=== PATIENT | female | born 1960 | race Caucasian/White ===

== ENCOUNTER 2018-07-03 08:21 | Day surgery (SDC) | payer BC ==
[~2018-07-03 08:21] MED LIST: ACEDIPPM; ALPR1; CLON1; CODASP30; DIAZ5 PO; GABA100; HORMONES; HYDACE10B PO; HYDMOR2 PO; LIDO5TP; LORA1 PO; METH10 PO; OXYACE5T; OXYACE5T PO; OXYC1TAB11 PO; PRED10 PO; PREG75; ROSU10TA PO; TIZA4; TRAM50; TRAZ50 PO; WARF3 PO; WARF5 PO
--- NOTE | 2018-07-03 10:24 | NUR ---
INTO STEP VIA RAHCEL. PT A&O X3. DENIES PAIN. BANDAIDE INTACT TO LOWER BACK. VS WDL.
--- NOTE | 2018-07-03 11:31 | NUR ---
Discharge instructions reviewed with patient. Patient verbalizes understanding. Copy given to patient to take home.BANDAIDE TO LOWER BACK REMAINS C/D/I.
== END 2018-07-03 11:48 | disposition home or self-care (01) ==
LOC: RAD 08:21 → CT 10:00 → RAD 11:48
PROVIDERS: Radiology Diagnostic Radiology
PROC: BR27YZZ Computerized Tomography (CT Scan) of Thoracic Spine using Other Contrast (ICD-10-PCS; principal; 2018-07-03 11:00)
DX: M51.24 Other intervertebral disc displacement, thoracic region (principal); M47.898 Other spondylosis, sacral and sacrococcygeal region; M54.6 Pain in thoracic spine
CPT/HCPCS: 62304; 72132; Q9966

== ENCOUNTER → 2019-06-19 | Outpatient (CLI) | payer BC | END | disposition home or self-care (01) | LOC: LAB EV 12:00 → LAB SHORT 12:00 | DX: K09.1 Developmental (nonodontogenic) cysts of oral region (principal) | CPT/HCPCS: 87070; 87075; 87076; 87185; 87205 ==

== ENCOUNTER 2022-07-18 11:37 | Emergency (ER) | payer BC ==
[~2022-07-18] VITALS: Ht 172.7 cm; Wt 88.5 kg
[~2022-07-18 11:37] MED LIST changes: +HYDMOR4 PO
[2022-07-18 13:21] LABS: International Normalized Ratio 2.5; Prothrombin Time Results 24.7 Sec (9.7-11.5)
[2022-07-18] MEDS ORDERED: HYDMOR4 PO (15:18)
[2022-07-18] MEDS ORDERED: Miralax17 GM PO (15:20)
== END 2022-07-18 16:20 | disposition home or self-care (01) ==
LOC: ER 11:37
PROVIDERS: Emergency Medicine
DX: S52.571A Other intraarticular fracture of lower end of right radius, initial encounter for closed fracture (principal); S52.611A Displaced fracture of right ulna styloid process, initial encounter for closed fracture; W19.XXXA Unspecified fall, initial encounter; I69.951 Hemiplegia and hemiparesis following unspecified cerebrovascular disease affecting right dominant side; D68.8 Other specified coagulation defects; T45.515A Adverse effect of anticoagulants, initial encounter; Z79.899 Other long term (current) drug therapy; Z79.01 Long term (current) use of anticoagulants
CPT/HCPCS: 73110; 76000; 85610; 94760; 94762; J1170; J2704; J7030

== ENCOUNTER 2022-07-23 11:22 | Day surgery (SDC) | payer BC ==
[~2022-07-23] VITALS: Ht 172.7 cm; Wt 89.6 kg
[~2022-07-23 11:22] MED LIST changes: +Miralax17 GM PO
[2022-07-23] MEDS ORDERED: ANASTROZOLE1 M7 PO (11:48)
--- NOTE | 2022-07-23 13:29 | NUR ---
EARINGS IDENTIFIED "FAKE" DIAMONDS REMOVED FOR SURGERY. PLACED PATIENT NAME ON BAG CONTAINING EARINGS AND BROUGHT TO PACU FOR SAFE KEEPING DURING SURGERY. PARTIAL DENTURES REMOVED PER DR PARKINSON REQUEST. KIKE PARTIAL DENTURES TO PACU FOR SAFE KEEPING ALSO.
--- NOTE | 2022-07-23 17:04 | NUR ---
Patient up to Ambulate independently. Gait steady. Discharge instructions reviewed with patient. Patient verbalizes understanding. Copy given to patient to take home. Discharged via wheelchair to private car for ride home.
== END 2022-07-24 22:42 | disposition home or self-care (01) ==
LOC: ORSCMMR 11:22
PROVIDERS: Orthopaedic Surgery
PROC: 0PSH04Z Reposition Right Radius with Internal Fixation Device, Open Approach (ICD-10-PCS; principal; 2022-07-23 13:30)
DX: S52.501A Unspecified fracture of the lower end of right radius, initial encounter for closed fracture (principal); F17.210 Nicotine dependence, cigarettes, uncomplicated; G47.33 Obstructive sleep apnea (adult) (pediatric); E03.9 Hypothyroidism, unspecified; W17.89XA Other fall from one level to another, initial encounter; E78.5 Hyperlipidemia, unspecified; Z86.73 Personal history of transient ischemic attack (TIA), and cerebral infarction without residual deficits; Z79.899 Other long term (current) drug therapy; Z79.01 Long term (current) use of anticoagulants
CPT/HCPCS: A9270; C1713; J0690; J1100; J1170; J1885; J2250; J2370; J2405; J2704; J3010; J7120

== ENCOUNTER 2023-04-21 22:05 | Observation (INO) | payer BC, MEDICARE ==
[~2023-04-21] VITALS: Ht 172.7 cm; Wt 81.7 kg
[~2023-04-21 22:05] MED LIST changes: +ANASTROZOLE1 M7 PO
[2023-04-21 23:24] LABS: BASOPHILS ABSOLUTE AUTO 0.02 K/mm3 (0.00-0.23); BASOPHILS PERCENT AUTO 0 % (0-2); EOSINOPHILS ABSOLUTE AUTO 0.04 K/mm3 (0.00-0.68); EOSINOPHILS PERCENT AUTO 1 % (0-6); Hematocrit 42.8 % (33.0-51.0); Hemoglobin 14.5 g/dL (11.5-16.0); IMMATURE GRAN ABSOLUTE AUTO 0.01 K/mm3 (0.00-0.10); IMMATURE GRAN PERCENT AUTO 0 % (0-1); LYMPHOCYTES ABSOLUTE AUTO 1.25 K/mm3 (0.84-5.20); LYMPHOCYTES PERCENT AUTO 22 % (21-46); MONOCYTES ABSOLUTE AUTO 0.43 K/mm3 (0.16-1.47); MONOCYTES PERCENT AUTO 8 % (4-13); Mean Corpuscular HGB 33.5 pg (26.0-34.0); Mean Corpuscular HGB Conc 33.9 g/dL (31.5-36.5); Mean Corpuscular Volume 99 fL (80-100); Mean Platelet Volume 10.4 fL (9.1-12.4); NEUTROPHILS ABSOLUTE AUTO 3.88 K/mm3 (1.96-9.15); NEUTROPHILS PERCENT AUTO 69 % (41-73); Platelet Count 254 K/mm3 (150-400); RDW Coefficient Variation 13.7 % (11.7-14.2); RDW Standard Deviation 50.6 fL (35.1-46.3); Red Blood Cell Count 4.33 M/mm3 (3.80-5.20); White Blood Cell Count 5.63 K/mm3 (4.00-11.30)
[2023-04-21 23:44] LABS: International Normalized Ratio 2.29; Prothrombin Time Results 22.9 Sec (9.7-11.5)
[2023-04-22 00:11] LABS: Alanine Aminotransfer (ALT/SGP 31 U/L (12-78); Albumin, Blood 3.3 g/dL (3.4-5.0); Alk Phos 72 U/L (50-136); Anion Gap 5 mmol/L (6-16); Aspartate Aminotrans (AST/SGOT 24 U/L (12-37); Bilirubin, Total 0.3 mg/dL (0.1-1.0); Blood Urea Nitrogen 14 mg/dL (8-24); Bun/Creatinine Ratio 16.5 (12.0-20.0); CO2, Blood 26 mmol/L (21-32); Calcium, Blood 9.1 mg/dL (8.5-10.1); Chloride, Blood 114 mmol/L (98-108); Creatinine, Blood 0.85 mg/dL (0.40-1.00); Ethanol (Alcohol), Blood, Med <3 mg/dL; Globulin, Blood 3.2 g/dL (2.2-4.0); Glomerular Filtration Rate 76 (60-); Glucose, Blood 135 mg/dL (70-99); Magnesium, Blood 2.3 mg/dL (1.6-2.4); Phosphorus, Blood 2.3 mg/dL (2.5-4.9); Potassium, Blood 3.8 mmol/L (3.5-5.5); Sodium, Blood 145 mmol/L (136-145); Total Protein, Blood 6.5 g/dL (6.4-8.2)
[2023-04-22 00:18] LABS: Source, Urine Clean Catch
[2023-04-22 00:37] LABS: U Amphetamine Screen Not Detected; U Barbituate Screen Not Detected; U Benzodiazapine Screen Not Detected; U Buprenorphine Screen Not Detected; U Cannabinoids Screen Not Detected; U Cocaine Screen Not Detected; U Methadone Screen Not Detected; U Methamphetamine Screen Not Detected; U Opiates Screen DETECTED; U Oxycodone Screen Not Detected; U Phencyclidine Screen Not Detected; U Propoxyphene Screen Not Detected
[2023-04-22 00:39] LABS: Bilirubin, Urine Neg (Neg); Blood, Urine 1+ (Neg); Glucose Qualitative, Urine Neg (Neg); Ketones, Urine Neg (Neg); Leukocyte Esterase, Urine 1+ (Neg); Nitrite, Urine Neg (Neg); Protein, Urine Neg (Neg); Specific Gravity, Urine 1.015 (1.003-1.022); Urobilinogen, Urine NORM (Normal)
[2023-04-22 00:42] LABS: Appearance, Urine Clear (Clear); Color, Urine Yellow (P-Yellow); Red Blood Cells, Urine 0-2 /hpf (0-2); Squamous Epithelial Cells Few /hpf (Few); White Blood Cells, Urine 0-2 /hpf (0-5)
[2023-04-22 00:43] LABS: Bacteria Few /hpf
[2023-04-22 05:09] VITALS: BP 172/89
[2023-04-22 05:12] LABS: BASOPHILS ABSOLUTE AUTO 0.02 K/mm3 (0.00-0.23); BASOPHILS PERCENT AUTO 0 % (0-2); EOSINOPHILS ABSOLUTE AUTO 0.03 K/mm3 (0.00-0.68); EOSINOPHILS PERCENT AUTO 1 % (0-6); Hematocrit 43.6 % (33.0-51.0); Hemoglobin 14.7 g/dL (11.5-16.0); IMMATURE GRAN PERCENT AUTO 0 % (0-1); LYMPHOCYTES ABSOLUTE AUTO 1.38 K/mm3 (0.84-5.20); LYMPHOCYTES PERCENT AUTO 27 % (21-46); MONOCYTES ABSOLUTE AUTO 0.39 K/mm3 (0.16-1.47); MONOCYTES PERCENT AUTO 8 % (4-13); Mean Corpuscular HGB 33.6 pg (26.0-34.0); Mean Corpuscular HGB Conc 33.7 g/dL (31.5-36.5); Mean Corpuscular Volume 100 fL (80-100); Mean Platelet Volume 9.6 fL (9.1-12.4); NEUTROPHILS ABSOLUTE AUTO 3.38 K/mm3 (1.96-9.15); NEUTROPHILS PERCENT AUTO 65 % (41-73); Platelet Count 254 K/mm3 (150-400); RDW Coefficient Variation 13.7 % (11.7-14.2); Red Blood Cell Count 4.37 M/mm3 (3.80-5.20)
[2023-04-22 05:50] LABS: Bun/Creatinine Ratio 12.4 (12.0-20.0); Creatinine, Blood 1.13 mg/dL (0.40-1.00); Potassium, Blood 3.9 mmol/L (3.5-5.5)
[2023-04-22 06:00] LABS: Calcium, Blood 9.1 mg/dL (8.5-10.1)
[2023-04-22 08:05] VITALS: BP 151/121
[2023-04-22 10:40] VITALS: BP 123/103
[2023-04-22] MEDS ORDERED: HYDMOR4 PO (13:33)
[2023-04-22] MEDS ORDERED: TRAZ150T57 PO (13:34)
[2023-04-22] MEDS ORDERED: LIDO700A20 TOP (13:36)
[2023-04-22] MEDS ORDERED: Acetaminophen650 M1 PO (13:37)
[2023-04-22] MEDS ORDERED: MELATONIN10 M1 PO (13:37)
[2023-04-22 14:18] VITALS: BP 169/96
[2023-04-22 19:43] VITALS: BP 165/98
--- NOTE | 2023-04-22 19:57 | NUR ---
PATIENT WITH INCREASING INDEPENDENCE TODAY, SHE IS SBA TO BATHROOM WITHOUT WALKER, UP WALKING ANDRADE WITH THIS EVENING APPROX 100 FEET. HER EXPRESSIVE APHASIA AND BILAT FACIAL DROOP ARE DECREASING COMPARED TO THIS MORNING. PATIENT MEDICATED FOR PAIN PER EMAR WITH RELIEF. BED IN LOW POSITION, CALL LIGHT IN REACH. PATIENT DOES NOT CALL BUT WAITS TO GET UP WITH STAFF.
[2023-04-23 02:23] VITALS: BP 136/93
--- NOTE | 2023-04-23 03:55 | NUR ---
PT A&O, HAS EXPRESSIVE APHASIA AND STRUGGLES TO FIND THE WORDS TO SPEAK. WILL ANSWER QUESTIONS APPROPRIATELY. PT INCREASING IN INDEPENDENCE. IP ASSIST WHEN AMBULATING TO THE RESTROOM. MEDICATED PER EMAR FOR PT COMPLAINT OF PAIN. OFFERED K PAD FOR HEAT THERAPY. BED IN LOWEST POSITION WITH CALL LIGHT WITHIN REACH. WILL CONTINUE TO MONITOR.
[2023-04-23 07:40] LABS: International Normalized Ratio 1.56
[2023-04-23 08:07] VITALS: BP 155/94
[2023-04-23 10:24] LABS: BASOPHILS ABSOLUTE AUTO 0.02 K/mm3 (0.00-0.23); BASOPHILS PERCENT AUTO 0 % (0-2); EOSINOPHILS ABSOLUTE AUTO 0.02 K/mm3 (0.00-0.68); EOSINOPHILS PERCENT AUTO 0 % (0-6); Hematocrit 42.9 % (33.0-51.0); Hemoglobin 14.6 g/dL (11.5-16.0); IMMATURE GRAN ABSOLUTE AUTO 0.02 K/mm3 (0.00-0.10); IMMATURE GRAN PERCENT AUTO 0 % (0-1); LYMPHOCYTES ABSOLUTE AUTO 1.24 K/mm3 (0.84-5.20); LYMPHOCYTES PERCENT AUTO 23 % (21-46); MONOCYTES ABSOLUTE AUTO 0.37 K/mm3 (0.16-1.47); MONOCYTES PERCENT AUTO 7 % (4-13); Mean Corpuscular HGB 33.6 pg (26.0-34.0); Mean Corpuscular Volume 99 fL (80-100); NEUTROPHILS ABSOLUTE AUTO 3.78 K/mm3 (1.96-9.15); NEUTROPHILS PERCENT AUTO 69 % (41-73); RDW Coefficient Variation 13.6 % (11.7-14.2); RDW Standard Deviation 49.8 fL (35.1-46.3); Red Blood Cell Count 4.34 M/mm3 (3.80-5.20); White Blood Cell Count 5.45 K/mm3 (4.00-11.30)
[2023-04-23 10:39] LABS: Albumin, Blood 3.3 g/dL (3.4-5.0); Albumin/Globulin Ratio 0.9 (0.8-1.8); Bilirubin, Total 0.7 mg/dL (0.1-1.0); Bun/Creatinine Ratio 19.1 (12.0-20.0); Calcium, Blood 8.9 mg/dL (8.5-10.1); Creatinine, Blood 0.84 mg/dL (0.40-1.00); Globulin, Blood 3.5 g/dL (2.2-4.0); Total Protein, Blood 6.8 g/dL (6.4-8.2)
[2023-04-23 10:40] LABS: Potassium, Blood 4.4 mmol/L (3.5-5.5)
[2023-04-23 16:10] VITALS: BP 148/84
--- NOTE | 2023-04-23 18:22 | NUR ---
SHIFT SUMMARY PT AOX4, INDEPENDENT IN THE ROOM. MRI CANCELLED TODAY DUE TO IMPLANTED SPINAL STIMULATOR. REPEAT CT TOMORROW AM AND POSSIBLE DC HOME. MEDICATED FOR PAIN AND ANXIETY PER THE EMAR. PT'S EXPRESSIVE APHASIA IMPROVING. AT THE BS THIS SHIFT. CALL LIGHT WITHIN REACH, BED IN THE LOWEST POSITION. WILL REPORT TO ONCOMING NURSE.
[2023-04-23 19:16] VITALS: BP 157/79
--- NOTE | 2023-04-24 03:24 | NUR ---
SHIFT SUMMARY PT A&O X4, CALM AND COOPERATIVE WITH CARE. PT STRUGGLES WITH EXPRESSIVE APHASIA BUT IS IMPROVING. PT REQUIRES EXTRA TIME FOR RESPONSES SHE HAS TROUBLE FINDING THE CORRECT WORDS. PT CONTINENT AND AMBULATING WELL TO THE RESTROOM. PT TO HAVE REPEAT CT SCAN TODAY AND WILL LIKELY DISCHARGE TO HOME. MEDICATED FOR PAIN PER EMAR. BED KEPT IN LOWEST POSITION WITH CALL LIGHT WITHIN REACH. WILL CONTINUE TO MONITOR UNTIL END OF SHIFT.
[2023-04-24 05:23] VITALS: BP 169/100
[2023-04-24 06:10] VITALS: BP 156/91
[2023-04-24 06:45] LABS: International Normalized Ratio 1.58; Prothrombin Time Results 16.2 Sec (9.7-11.5)
[2023-04-24 07:51] VITALS: BP 137/82
[2023-04-24] MEDS ORDERED: AMLO5 PO (11:35)
[2023-04-24] MEDS ORDERED: ASPI81CH PO (11:35)
--- NOTE | 2023-04-24 12:12 | NUR ---
DISCHARGE NOTE PT DISCHARGE TO HOME WITH HOME HEALTH. PICKED UP BY HER , TAKEN TO VEHICLE BY THIS NURSE. NO IV AT TIME OF DISCHARGE. DISCHARGE INFORMATION AND EDUCATION PROVIDED. PERSONAL BELONGINGS RETURNED.
== END 2023-04-24 12:01 | disposition home health service (06) ==
LOC: ER 22:05 → MEDS 22:06
PROVIDERS: Emergency Medicine; Internal Medicine; Student in an Organized Health Care Education/Training Program; ADMIT Internal Medicine
DX: R47.01 Aphasia (principal); I69.954 Hemiplegia and hemiparesis following unspecified cerebrovascular disease affecting left non-dominant side; C50.911 Malignant neoplasm of unspecified site of right female breast; Z17.1 Estrogen receptor negative status [ER-]; E83.110 Hereditary hemochromatosis; E78.5 Hyperlipidemia, unspecified; I12.9 Hypertensive chronic kidney disease with stage 1 through stage 4 chronic kidney disease, or unspecified chronic kidney disease; N18.2 Chronic kidney disease, stage 2 (mild); G89.29 Other chronic pain; Z66 Do not resuscitate; Z79.01 Long term (current) use of anticoagulants; Z79.899 Other long term (current) drug therapy
CPT/HCPCS: 36415; 70450; 70496; 70498; 71275; 74174; 80048; 80053; 81001; 83605; 83735; 84100; 84145; 84443; 85025; 85610; 85730; 92610; 93005; 93010; 96374; 96375; 97162; 97530; 99285-25; A9270; G0378; J2060; J3010; Q9967

== ENCOUNTER 2024-07-09 06:33 | Day surgery (SDC) | payer MEDICARE, OTHER ==
[~2024-07-09] VITALS: Ht 167.6 cm; Wt 72.0 kg
[2024-07-09] VITALS (14 sets, daily range): BP systolic 109–144; BP diastolic 52–99
[~2024-07-09 06:33] MED LIST changes: +AMLO5 PO; +ASPI81CH PO; +Acetaminophen650 M1 PO; +IBUP400 PO; +LIDO700A20 TOP; +MELATONIN10 M1 PO; +METO50ER PO; +Prinivil10 MG PO; +SENN187 PO; +TRAZ150T57 PO
[2024-07-09] MEDS ORDERED: Chlorhexidine Mouth Care 15 ML UDC MT SCH (08:00)
[2024-07-09] MEDS ORDERED: Acetaminophen 500 MG Tab PO SCH ×2 (08:00→16:00)
[2024-07-09] MEDS ORDERED: Lactated Ringer's 1,000 ML IV SCH ×2 (08:00→08:45)
[2024-07-09] MEDS ORDERED: Tranexamic Acid 1,000 MG in NS 100 ML IV SCH (08:00)
[2024-07-09] MEDS ORDERED: CeFAZolin Sodium 2,000 MG in NS 100 ML IV SCH ×2 (08:00→19:00)
[2024-07-09] MEDS ORDERED: OxyCODONE HCL 10 MG TABCR PO SCH (08:00)
[2024-07-09] MEDS ORDERED: Ropivacaine 0.5% HCl/Pf 123.125 MG,EPINEPHrine HCL 0.25 MG,Ketorolac Tromethamine 15 MG... INFIL SCH (08:00)
[2024-07-09] MEDS ORDERED: CeFAZolin Sodium 2,000 MG VIAL ONE (08:22)
[2024-07-09] MEDS ORDERED: Magnesium Hydroxide Conc 10 ML UDC PO PRN (08:40)
[2024-07-09] MEDS ORDERED: Metoclopramide HCl 5MG / ML 2ML Vial IV PRN (08:40)
[2024-07-09] MEDS ORDERED: FLU VACC TS2024-25(6MOS UP)/PF 45 MCG/0.5 ML SYRINGE IM SCH (08:40)
[2024-07-09] MEDS ORDERED: HYDROmorphone HCl/Pf 1MG SYR IV PRN (08:40)
[2024-07-09] MEDS ORDERED: Ondansetron HCl 2 MG / ML 2ML Vial IV PRN (08:40)
[2024-07-09] MEDS ORDERED: Prochlorperazine Edisylate 10 mg Vial IV PRN (08:45)
[2024-07-09] MEDS ORDERED: Promethazine HCl 25 MG Tab PO PRN (08:45)
[2024-07-09] MEDS ORDERED: OxyCODONE HCL 5 MG TAB PO PRN ×2 (08:45)
[2024-07-09] MEDS ORDERED: DiphenhydrAMINE HCL 25 MG Cap PO PRN (08:50)
[2024-07-09] MEDS ORDERED: Bisacodyl 10 MG Supp PR PRN (08:50)
[2024-07-09] MEDS ORDERED: Docusate Sodium 100 MG Cap PO SCH (09:00)
[2024-07-09] MEDS ORDERED: Bupivacaine 0.5% HCl 5 MG/ML 30MLVIAL ONE (09:42)
[2024-07-09] MEDS ORDERED: Midazolam HCl 1MG / ML 2ML Vial ONE (09:42)
[2024-07-09] MEDS ORDERED: Dexamethasone Sod Phos 10 MG/ML 1ML VIAL ONE (09:43)
[2024-07-09] MEDS ORDERED: Ketorolac Tromethamine 30mg Vial ONE (09:43)
[2024-07-09] MEDS ORDERED: Ondansetron HCl 2 MG / ML 2ML Vial ONE (09:43)
[2024-07-09 09:56] LABS: Bilirubin, Direct 0.1 mg/dL (0.0-0.3); Bilirubin, Indirect 0.3 mg/dL (0.1-0.7); Bilirubin, Total 0.4 mg/dL (0.1-1.0)
[2024-07-09] MEDS ORDERED: propofoL 20 ML IV ONE (10:23)
[2024-07-09] MEDS ORDERED: FentaNYL Citrate 50 MCG/ML 2 ML Injection ONE ×3 (10:55→12:17)
[2024-07-09] MEDS ORDERED: ePHEDrine Sulfate 50 MG/ML 1ML Injection ONE (11:54)
[2024-07-09] MEDS ORDERED: Ketorolac Tromethamine 15mg Vial IV SCH (12:00)
[2024-07-09] MEDS ORDERED: HYDROmorphone HCl/Pf 1MG SYR ONE (12:30)
--- NOTE | 2024-07-09 13:35 | NUR ---
POST OP NOTE PT TO ROOM 221 FROM PACU. ALERT AND FOLLOWING COMMANDS. PT HAS HX OF CVA, BASELINE APHASIA. DRESSING TO R HIP C/D/I. RAMO, KALA BOLAND, POLAR PACK IN PLACE. PT MEDICATED FOR PAIN PER EMAR. VSS. INSTRUCTED ON USE OF CALL LIGHT, CALL LIGHT IN REACH.
[2024-07-09] MEDS ORDERED: Melatonin 5 MG Tablet PO PRN (16:45)
[2024-07-09] MEDS ORDERED: TraZODone HCl 100 MG Tab PO PRN (16:50)
--- NOTE | 2024-07-09 17:10 | NUR ---
SHIFT SUMMARY PT IS POD0 FOR T LA[place]IS[place]. PT IS ALERT AND RESPONSIVE, IMPULSIVE AT TIMES AND FORGETFUL ABOUT NEEDING ASSISTANCE, CHAIR ALARM IN PLACE. PT IS CALLING APPROPRIATELY MOST OF THE TIME. DRESSING TO R HIP C/D/I, CAP REFILL IN R TOES 2 SECS, PAS, KALA HOSE, POLAR PACK IN PLACE. PT IS A 1 ASST TO BATHROOM W/ FWW AND GB, TOLERATING REG DIET AND FLUIDS, VOIDING APPROPRIATELY. PAIN TOLERABLE. VSS. PT CURRENTLY RESTING IN RECLINER. CALL LIGHT IN REACH.
[2024-07-09 17:29] LABS: Prothrombin Time Results 10.7 Sec (9.7-11.5)
[2024-07-09] MEDS ORDERED: Warfarin Sodium 5 MG Tab PO SCH (18:00)
[2024-07-09] MEDS ORDERED: AmLODIPine Besylate 5 MG Tab PO SCH (21:00)
[2024-07-10 00:48] VITALS: BP 159/91
[2024-07-10 05:01] LABS: BASOPHILS ABSOLUTE AUTO 0.02 K/mm3 (0.00-0.23); BASOPHILS PERCENT AUTO 0 % (0-2); EOSINOPHILS PERCENT AUTO 0 % (0-6); Hematocrit 34.6 % (33.0-51.0); Hemoglobin 11.4 g/dL (11.5-16.0); IMMATURE GRAN ABSOLUTE AUTO 0.04 K/mm3 (0.00-0.10); IMMATURE GRAN PERCENT AUTO 0 % (0-1); LYMPHOCYTES ABSOLUTE AUTO 1.48 K/mm3 (0.84-5.20); LYMPHOCYTES PERCENT AUTO 12 % (21-46); MONOCYTES ABSOLUTE AUTO 0.69 K/mm3 (0.16-1.47); MONOCYTES PERCENT AUTO 5 % (4-13); Mean Corpuscular HGB 31.3 pg (26.0-34.0); Mean Corpuscular HGB Conc 32.9 g/dL (31.5-36.5); Mean Corpuscular Volume 95 fL (80-100); Mean Platelet Volume 10.1 fL (9.1-12.4); NEUTROPHILS ABSOLUTE AUTO 10.62 K/mm3 (1.96-9.15); NEUTROPHILS PERCENT AUTO 83 % (41-73); Platelet Count 223 K/mm3 (150-400); RDW Coefficient Variation 12.6 % (11.7-14.2); RDW Standard Deviation 44.4 fL (35.1-46.3); Red Blood Cell Count 3.64 M/mm3 (3.80-5.20); White Blood Cell Count 12.85 K/mm3 (4.00-11.30)
--- NOTE | 2024-07-10 05:06 | NUR ---
SHIFT SUMMARY POD 1 S/P RIGHT HIP REPAIR, PRINEO DRESSING CDI. ICE THERAPY APPLIED VIKI, ICE REFILLED PRN. PAIN MANAGED PER EMAR. ABX INFUSED PER ORDERS. IV REMOVED AND REPLACED. AMB WITH FWW, GB, AND SBA. VIKI PO INTAKE, DENIES N/V. IS VOIDING. CURRENTLY UP IN CHAIR WITH CALL LIGHT IN REACH AND TAB ALARM IN PLACE FOR SAFETY. PLAN TO WORK WITH THERAPY AND DC HOME TODAY. WILL GIVE REPOR TO ONCOMING RN
[2024-07-10 05:41] VITALS: BP 156/99
[2024-07-10 05:47] LABS: Bun/Creatinine Ratio 23.3 (12.0-20.0); Calcium, Blood 9.2 mg/dL (8.5-10.1); Creatinine, Blood 0.86 mg/dL (0.40-1.00); Magnesium, Blood 1.9 mg/dL (1.6-2.4); Potassium, Blood 4.2 mmol/L (3.5-5.5)
[2024-07-10 07:26] VITALS: BP 150/77
[2024-07-10] MEDS ORDERED: ASPI81CH PO (08:22)
[2024-07-10] MEDS ORDERED: ACET500 PO (08:22)
[2024-07-10] MEDS ORDERED: Aspirin 81 MG Chew PO SCH (09:00)
[2024-07-10] MEDS ORDERED: Metoprolol Succinate 50 MG TABCR PO SCH (09:00)
[2024-07-10] MEDS ORDERED: Lisinopril 10 MG Tab PO SCH (09:00)
[2024-07-10] MEDS ORDERED: Anastrozole 1 MG TAB PO SCH (09:00)
--- NOTE | 2024-07-10 11:13 | NUR ---
DISCHARGE SUMMARY PT IS POD1 FOR R LAKEISHA. PT IS ALERT, ORIENTED, FOLLOWS COMMANDS BUT IS IMPULSIVE AT TIMES. DRESSING TO R HIP IS C/D/I, CAP REFILL IN R TOES 2 SECS. PAS, KALA BOLAND, POLAR YOLANDA IN PLACE. VSS. PT'S PAIN IS TOLERABLE. TOLERATING PO REG DIET, FLUIDS, VOIDING APPROPRIATELY. CHARGE NURSE TREVOR REVIEWED DISCHARGE INSTRUCTIONS W/ PT, COPY GIVEN. PT DC'D VIA WC TO PRIVATE RIDE HOME IN STABLE CONDITION W/ BELONGINGS.
== END 2024-07-10 11:13 | disposition home or self-care (01) ==
LOC: ORSCMMR 06:33 → SURS 13:15 → ORSCMMR 07-10 11:13
PROVIDERS: Orthopaedic Surgery
PROC: 0SR90JA Replacement of Right Hip Joint with Synthetic Substitute, Uncemented, Open Approach (ICD-10-PCS; principal; 2024-07-09 09:30)
DX: M16.11 Unilateral primary osteoarthritis, right hip (principal); I10 Essential (primary) hypertension; F17.210 Nicotine dependence, cigarettes, uncomplicated; G47.33 Obstructive sleep apnea (adult) (pediatric); I69.320 Aphasia following cerebral infarction; Z79.899 Other long term (current) drug therapy; Z85.3 Personal history of malignant neoplasm of breast; Z79.01 Long term (current) use of anticoagulants
CPT/HCPCS: 36415; 72170; 80048; 80076; 83735; 85025; 85610; 85730; 97110; 97116; 97161; 97530; A9270; C1776; J0171; J0690; J0735; J1100; J1171; J1885; J2250; J2405; J2704; J2795; J3010; J7120